=== PATIENT | male | born 1980 | race Caucasian/White ===

== ENCOUNTER 2016-07-18 12:48 | Emergency (ER) | payer BC ==
[2016-07-18 14:01] LABS: HEMOGLOBIN 14.3 gm/dl (14.0-17.5); RED BLOOD COUNT 4.72 M/UL (4.20-5.50); WHITE BLOOD COUNT 8.9 K/UL (4.5-11.0)
[2016-07-18 14:32] LABS: BUN/CREATININE RATIO 12 (0-10)
== END 2016-07-18 20:10 | disposition home or self-care (01) ==
LOC: ER1 12:48
PROVIDERS: Emergency Medicine
DX: R07.89 Other chest pain (principal); F17.210 Nicotine dependence, cigarettes, uncomplicated
CPT/HCPCS: 36415; 71020; 80053; 82550; 82553; 82962; 83874; 84484; 85025; 85379; 93005; 99285

== ENCOUNTER 2016-11-12 08:20 | Emergency (ER) | payer MEDICAID | END 2016-11-12 09:29 | disposition home or self-care (01) | LOC: ER1 08:20 | DX: J20.9 Acute bronchitis, unspecified (principal); J06.9 Acute upper respiratory infection, unspecified; F17.200 Nicotine dependence, unspecified, uncomplicated | CPT/HCPCS: 99283 ==